=== PATIENT | female | born 1950 | race Caucasian/White ===

== ENCOUNTER 2017-06-28 07:41 | Emergency (ER) | payer BC, MEDICARE ==
[2017-06-28] MEDS ORDERED: traMADol TAB* 50 MG PO ONE (08:17)
[2017-06-28] MEDS ORDERED: NS 0.9% 1000 ML* 1,000 ML IV SCH (08:30)
[2017-06-28] MEDS ORDERED: Midazolam* 1 MG/ML 5 ML VIAL (5 MG) SLOW PUSH ONE (09:15)
[2017-06-28] MEDS ORDERED: fentaNYL* 50 MCG/ML 2 ML VIAL (100 MCG VIAL) IV SLOW PU ONE (09:15)
[2017-06-28 09:32] LABS: Hematocrit 43 % (35-47); Hemoglobin 14.3 g/dl (12.0-16.0); Mean Corpuscular HGB Conc 34 g/dl (31-36); Mean Corpuscular Hemoglobin 31 pg (27-31); Mean Corpuscular Volume 91 fL (80-97); Mean Platelet Volume 8 um3 (7.4-10.4); Red Blood Count 4.68 10^6/ul (4.0-5.4); Red Cell Distribution Width 14 % (10.5-15); White Blood Count 12.1 10^3/ul (3.5-10.8)
--- NOTE | 2017-06-28 09:38 | RAD ---
HISTORY: Left rib pain, fall COMPARISONS: None VIEWS: 11, Frontal and oblique views of the left and right hemithorax. FINDINGS: There is no displaced rib fracture or pneumothorax. The visualized lungs are clear. There is left shoulder dislocation. IMPRESSION: 1. NO DISPLACED RIB FRACTURE OR PNEUMOTHORAX. 2. LEFT SHOULDER DISLOCATION.
--- NOTE | 2017-06-28 09:39 | RAD ---
HISTORY: Fall, deformity, left shoulder pain COMPARISONS: None VIEWS: 3, Frontal internal rotation, external rotation, and outlet views of the left shoulder FINDINGS: BONE DENSITY: Normal. BONES: There is no displaced fracture. JOINTS: There is no arthropathy. ALIGNMENT: There is anterior dislocation of the humeral head with respect to the glenoid fossa. SOFT TISSUES: Unremarkable. OTHER FINDINGS: None. IMPRESSION: LEFT SHOULDER DISLOCATION.
[2017-06-28 09:48] LABS: BUN/Creatinine Ratio 18.5 (8-20); EGFR African American 117.6 (>60); EGFR Non-African American 91.5 (>60); Potassium 3.7 mmol/L (3.5-5.0)
--- NOTE | 2017-06-28 10:23 | ED ---
Progress - Progress Note Progress Note: Assisted Dr. Chang in conscious sedation of reduction of Lt shoulder anterior subluxation. 1st attempt: external rotation 2nd attempt: traction/counter traction Shoulder immobilizer placed - N/V intact Post reduction imaging successful per review of Lt shoulder image MILLY NIELSON 10:22 06/28/2017 Course/Dx - Diagnoses Provider Diagnoses: Dislocation of left shoulder joint
--- NOTE | 2017-06-28 10:30 | RAD ---
Indication: Postreduction left humeral head dislocation. Single view of left shoulder demonstrates reduction of previously identified anterior dislocation of the left humeral head. IMPRESSION: Reduction of previously seen anterior dislocation of left humeral head.
[2017-06-28 11:49] VITALS: BP 104/66
--- NOTE | 2017-06-28 19:01 | ED ---
Efrain Downs Angela, scribed for Ariel Chang MD on 06/28/17 at 0816 . Upper Extremity Pain - HPI Summary HPI Summary: This pt is a 67 y/o female accompanied by her presenting to [facility] c/o left shoulder pain s/p fall today. Pt reports she slipped on ice at her house today landing forward and falling on her left shoulder. Pt denies head strike, LOC, neck pain, head pain. Pt reports numbness on left dorsal forearm. She notes she has decreased ROM on her left shoulder secondary to pain. Her pain is mildly aggravated with deep breathing. She currently rates her pain 8/10 in severity. Pt takes zyrtec for allergies in the morning, two eye drops, and escitalopram for anxiety. She only had a sip of coffee this morning at around 0600 - 0630 and denies any other PO intake. She denies any past problems with anesthesia. Surgeries include varicose veins but without anesthesia. - History of Current Complaint Chief Complaint: EDExtremityUpper Stated Complaint: FALL/LT SHOULDER INJURY Hx Obtained From: Patient Mechanism Of Injury: Fall From A Standing Position Onset/Duration: Started Hours Ago, Traumatic, Still Present Timing: Constant, Lasting Hours Severity Currently: Severe - 8/10 pain Pain Location: Shoulder - left Aggravating Factor(s): Other - deep breathing Associated Signs & Symptoms: Positive: Numbness/Tingling - on left dorsal forearm. Negative: Neck Pain - Allergies/Home Medications Allergies/Adverse Reactions: Allergies Allergy/AdvReac Type Severity Reaction Status Date / Time Codeine AdvReac Unknown Unknown Verified 12/25/13 13:12 Reaction Details PMH/Surg Hx/FS Hx/Imm Hx Endocrine/Hematology History: Denies: Hx Diabetes, Hx Thyroid Disease Cardiovascular History: Reports: Hx Hypercholesterolemia Denies: Hx Hypertension Respiratory History: Reports: Hx Sleep Apnea - current CPAP user, Other Respiratory Problems/Disorders - allergic rhinitis Denies: Hx Asthma, Hx Chronic Obstructive Pulmonary Disease (COPD) GI History: Denies: Hx Ulcer Musculoskeletal History: Reports: Hx Arthritis - osteo Denies: Hx Rheumatoid Arthritis, Hx Osteoporosis Sensory History: Reports: Hx Contacts or Glasses Opthamlomology History: Reports: Hx Contacts or Glasses Psychiatric History: Reports: Hx Anxiety, Hx Depression - Cancer History Hx Chemotherapy: No Hx Radiation Therapy: No - Surgical History Surgery Procedure, Year, and Place: barthalon cyst removal Infectious Disease History: No Infectious Disease History: Denies: Hx Hepatitis, Hx Human Immunodeficiency Virus (HIV), History Other Infectious Disease, Traveled Outside the [place] in Last 30 Days - Family History Known Family History: Positive: Other - Aunt: breast CA. Negative: Diabetes - Social History Alcohol Use: Occasionally Substance Use Type: Reports: Sedatives Smoking Status (MU): Never Smoked Tobacco Review of Systems Negative: Fever, Chills Negative: Erythema Negative: Sore Throat Negative: Chest Pain Negative: Shortness Of Breath, Cough Negative: Abdominal Pain, Vomiting, Nausea Negative: dysuria, hematuria Musculoskeletal: Other - left shoulder pain Positive: Decreased ROM - at left shoulder secondary to pain. Negative: Myalgia , Edema - leg, Other - neck pain Negative: Rash Neurological: Negative - dizziness or LOC Positive: Numbness - in left dorsal forearm. Negative: Headache All Other Systems Reviewed And Are Negative: Yes Physical Exam - Summary Physical Exam Summary: Constitutional: Well-developed, Well-nourished, Alert, Cooperative Skin: Warm, Dry HENT: Normocephalic; No Racoons eyes; No battles sign; No abrasion; No contusion ; No hemotympanum; No maxilla facial tenderness or instability; Dentition are smooth; No dental trauma; No trismus Eyes: EOM normal, PERRL Neck: Trachea is midline. No stridor; No JVD; No step off; No posterior cervical spine tenderness Cardio: Rhythm regular, rate normal Heart sounds normal; Intact distal pulses; The pedal pulses are 2+ and symmetric. Radial pulses are 2+ and symmetric. Pulmonary/Chest wall: Effort normal; Breath sounds normal; Equal chest rise; No flail segment; No rib tenderness; No sternal tenderness Abd: Soft, Appearance normal. No distension; No tenderness; No palpable pulsatile mass; No Cullens sign; No Ebckett-Turners sign Musculoskeletal: Full ROM and no tenderness at hips, ankles, elbows and knees; No joint swelling; No vertebral body tenderness; No paraspinal tenderness; No step off or deformity of the spine; Pelvis is stable to lateral compression and rock. Left lateral rib tenderness. LUE: there is loss of the deltoid prominence. Neuro: Alert, Oriented x3, Strength 5/5 all extremities. Lead Applier strength is intact. Pt reports subjective diminished sensation on the dorsal forearm. : No blood at urethral meatus Psych: Mood and affect Normal Triage Information Reviewed: Yes Vital Signs On Initial Exam: Initial Vitals Temp Pulse Resp BP Pulse Ox 97.9 F 62 16 132/83 99 06/28/17 07:51 06/28/17 07:51 06/28/17 07:51 06/28/17 07:51 06/28/17 07:51 Vital Signs Reviewed: Yes - [place] Coma Scale Coma Scale Total: 15 Procedures - Procedure Summary Procedure Summary: Procedural Sedation Note: Informed consent was obtained. I explained the risk of apnea, hypotension, allergic reaction with the pt and family. They understood. Pre-sedation assessment: she is Mallampati Class 2, ASA Class 2. As sedation was starting she actually reported a history of sleep apnea. Respiratory therapy was present, as well as emergency airway equipment. Suction and BMV were readily available. Capnography monitor was utilized, as well as pulse oximetry. The pt had shoulder joint reduction performed by DESHAWN Moore. After reduction, the pt did require some airway repositioning and painful stimulus sternal rub to stimulate breathing for approximately 5 to 7 minutes. No signs of hypotension, significant hypoxia, and no indication for reversal agents. I did adolescent counselor the on the pts sensitivity to anesthetics and sedatives for future sedation. As I left the room the pt was able to answer questions and was more alert. Medications used: 50 mcg of fentanyl and 3 mg versed. Diagnostics - Vital Signs Vital Signs Temp Pulse Resp BP Pulse Ox 06/28/17 07:51 97.9 F 62 16 132/83 99 - Laboratory Result Diagrams: 06/28/17 09:26 06/28/17 09:26 Lab Statement: Any lab studies that have been ordered have been reviewed, and results considered in the medical decision making process. - Radiology Left Shoulder XR Xray Interpretation: Positive (See Comments) - IMPRESSION: Left shoulder dislocation. ED physician has reviewed this radiology report and agrees. Radiology Interpretation Completed By: ED Physician - read: anterior dislocation of the shoulder. No fractures appreciated., Radiologist Ribs with Chest XR Xray Interpretation: Positive (See Comments) - IMPRESSION: 1. No displaced rib fracture or pneumothorax. 2. Left shoulder dislocation. ED physician has reviewed this radiology report and agrees. Radiology Interpretation Completed By: Radiologist Postreduction left shoulder XR Xray Interpretation: Positive (See Comments) - IMPRESSION: Reduction of previously seen anterior dislocation of left humeral head. ED physician has reviewed this radiology report and agrees. Radiology Interpretation Completed By: Radiologist Re-Evaluation - Re-Evaluation First Eval Re-Evaluation Time: 10:05 Comment: Procedural sedation was completed. Second Eval Re-Evaluation Time: 11:05 Comment: Pt is more conversational. She will eat before getting discharged. Third Eval Re-Evaluation Time: 11:29 Comment: There is resolution of the numbness of her hand. Lead Applier and strength are intact. Distal pulses are intact. Pt tolerated breakfast. Course/Dx - Course Assessment/Plan: This pt is a 67 y/o female accompanied by her presenting to [facility] c/o left shoulder pain s/p fall today. Pt reports she slipped on ice at her house today landing forward and falling on her left shoulder. Pt denies neck or head pain. No LOC. Pt reports numbness on left dorsal forearm. She notes she has decreased ROM on her left shoulder secondary to pain. Her pain is mildly aggravated with deep breathing. She currently rates her pain 8/10 in severity. Pt takes zyrtec for allergies in the morning, two eye drops, and escitalopram for anxiety. She only had a sip of coffee this morning at around 0600 - 0630 and denies any other PO intake. She denies any past problems with anesthesia. Surgeries include varicose veins but without anesthesia. XR of left shoulder and ribs with chest were obtained. Imaging shows 1. No displaced rib fracture or pneumothorax. 2. Left shoulder dislocation. In the ED course, the pt was given IV fluids and tramadol. Procedural sedation was performed. Please see procedural sedation note. DESHAWN Moore performed the shoulder joint reduction. Postreduction left shoulder XR shows reduction of previously seen anterior dislocation of left humeral head. On re-evaluatino at 11:29, there was resolution of the numbness of her hand. Lead Applier and strength are intact. Distal pulses are intact. Pt tolerated breakfast. Pt will be discharged with follow up from Dr. Chi, orthopedist wire preparation worker, and her PCP, Dr. Hay. Pt was given a sling to wear as well as discharge instructions. - Diagnoses Provider Diagnoses: Anterior dislocation of left shoulder Discharge - Discharge Plan Condition: Stable Disposition: HOME Patient Education Materials: Shoulder Dislocation (ED), Procedural Sedation (ED ) Referrals: Kamryn Chi MD [Medical Doctor] - Lucho Hay MD [Medical Doctor] - Additional Instructions: Please follow up with Dr. Chi, from orthopedics, in 3-5 days. Also, follow up with your primary care provider, Dr. Hay. Wear your sling during the day. You may take it off at night. Avoid reaching over your head. RETURN TO THE EMERGENCY DEPARTMENT FOR CHANGING OR WORSENING SYMPTOMS. The documentation as recorded by the Efrain day Angela accurately reflects the service I personally performed and the decisions made by me, Ariel Chang MD.
== END 2017-06-28 11:46 | disposition home or self-care (01) ==
LOC: ED 07:41
DX: S43.005A Unspecified dislocation of left shoulder joint, initial encounter (principal); E78.00 Pure hypercholesterolemia, unspecified; G47.30 Sleep apnea, unspecified; M19.90 Unspecified osteoarthritis, unspecified site; M81.0 Age-related osteoporosis without current pathological fracture; Z88.5 Allergy status to narcotic agent; W00.0XXA Fall on same level due to ice and snow, initial encounter; Y92.009 Unspecified place in unspecified non-institutional (private) residence as the place of occurrence of the external cause; F41.9 Anxiety disorder, unspecified
CPT/HCPCS: 23650; 36415; 71111; 80048; 85027; 85610; 85730; 96360; 96374; 96375; 99283; A9270-GY; J2250; J3010

== ENCOUNTER 2017-11-10 17:39 | Emergency (ER) | payer MEDICARE ==
[2017-11-10 17:49] VITALS: BP 126/73
--- NOTE | 2017-11-10 18:36 | UC ---
Respiratory Complaint HPI - HPI Summary HPI Summary: Patient presents with 3 days of worsening sore throat, pain with swallowing and productive cough. Also has rhinitis and sinus pressure. This morning patient woke up with RIGHT eye crusted shut and has had green, goopy drainage throughout the day. Patient denies fever, ear pain, nausea/vomiting. - History of Current Complaint Chief Complaint: UCRespiratory Stated Complaint: EYE PAIN/ SORE THROAT Time Seen by Provider: 11/10/17 18:03 Hx Obtained From: Patient Onset/Duration: Gradual Onset, Lasting Days, Still Present Timing: Constant Severity Initially: Moderate Severity Currently: Moderate Pain Intensity: 2 Pain Scale Used: 0-10 Numeric Character: Cough: Productive Aggravating Factors: Nothing Alleviating Factors: Nothing Associated Signs And Symptoms: Positive: URI, Nasal Congestion, Sinus Discomfort. Negative: Dyspnea, Fever, Wheezing - Allergies/Home Medications Allergies/Adverse Reactions: Allergies Allergy/AdvReac Type Severity Reaction Status Date / Time codeine Allergy Unknown Verified 11/10/17 17:50 Reaction Details Home Medications: Home Medications Escitalopram Oxalate [Lexapro 10 mg] 1 tab PO DAILY 11/10/17 [History Confirmed 11/10/17] PMH/Surg Hx/FS Hx/Imm Hx Psychological History: Anxiety - Surgical History Surgical History: Yes Surgery Procedure, Year, and Place: Barthalon cyst removal - Family History Known Family History: Positive: Hypertension, Other - Aunt: breast CA. Negative: Diabetes - Social History Alcohol Use: Occasionally Substance Use Type: Sedatives Smoking Status (MU): Never Smoked Tobacco Review of Systems Constitutional: Negative ENT: Sore Throat, Nasal Discharge Respiratory: Cough Cardiovascular: Negative Gastrointestinal: Negative Neurological: Headache All Other Systems Reviewed And Are Negative: Yes Physical Exam Triage Information Reviewed: Yes Appearance: No Pain Distress, Well-Nourished, Ill-Appearing - MILD Vital Signs: Initial Vital Signs Temp 98.2 F 11/10/17 17:46 Pulse 84 11/10/17 17:46 Resp 18 11/10/17 17:46 BP 126/73 11/10/17 17:46 Pulse Ox 98 11/10/17 17:46 Eyes: Positive: Conjunctiva Inflamed - RIGHT, Discharge - THICK, GREEN RIGHT EYE DISCHARGE. PERRL, EOMI ENT: Positive: Hearing grossly normal, Pharynx normal, TMs normal Neck: Positive: Supple, Nontender, Enlarged Nodes @ - MILD SPFL CERVICAL RIGHT SIDED LAD Respiratory Exam: Normal Cardiovascular Exam: Normal Abdomen Description: Positive: Soft Musculoskeletal: Positive: No Edema Neurological: Positive: Alert Psychological: Positive: Age Appropriate Behavior Skin: Negative: rashes UC Diagnostic Evaluation - Laboratory O2 Sat by Pulse Oximetry: 98 Respiratory Course/Dx - Differential Dx/Diagnosis Provider Diagnoses: 1. ACUTE URI. 2. RIGHT CONJUNCTIVITIS Discharge - Sign-Out/Discharge Documenting (check all that apply): Discharge - Discharge Plan Condition: Stable Disposition: HOME Prescriptions: Azithromycin 500 mg PO DAILY #4 tab Patient Education Materials: Upper Respiratory Infection (ED), Conjunctivitis ( ED) Forms: *Work Release Referrals: Lucho Hay MD [Primary Care Provider] - If Needed Additional Instructions: YOUR SYMPTOMS MAY BE VIRALLY MEDIATED BUT GIVEN YOUR CLINICAL PRESENTATION WE WILL COVER YOU WITH ANTIBIOTICS. IF YOU START THE MEDICINE BE SURE TO TAKE IT FOR THE FULL COURSE. REST, HYDRATE, OTC MEDS NEEDED. SEEK FOLLOW-UP WITH YOUR PCP IF YOU ARE NOT IMPROVING OVER THE NEXT 1-2 WEEKS. Use the Cipro eye drops every 4 hours while awake. Use until your symptoms have resolved and then use for an extra 2 days. Follow-up with an eye doctor if your symptoms are not improving as expected. - Billing Disposition and Condition Condition: STABLE Disposition: HOME
[2017-11-10] MEDS ORDERED: Azithromycin TAB* 250 MG PO ONE (18:37)
[2017-11-10] MEDS ORDERED: Ciprofloxacin 0.3% OPTH.SOL* 2.5 ML BTL RIGHT EYE ONE (18:37)
--- NOTE | 2017-11-11 14:29 | UC ---
- Progress Note Progress Note: Pharmacist concerned with interaction of zithromax and Lexapro. Changed to Amoxicillin, 875 bid, for 45 days; total 10. Sami Reed MD November 11, 2017 Discharge - Sign-Out/Discharge Documenting (check all that apply): Post-Discharge Follow Up - Discharge Plan Condition: Stable Disposition: HOME Prescriptions: Azithromycin 500 mg PO DAILY #4 tab Patient Education Materials: Upper Respiratory Infection (ED), Conjunctivitis ( ED) Forms: *Work Release Referrals: Lucho Hay MD [Primary Care Provider] - If Needed Additional Instructions: YOUR SYMPTOMS MAY BE VIRALLY MEDIATED BUT GIVEN YOUR CLINICAL PRESENTATION WE WILL COVER YOU WITH ANTIBIOTICS. IF YOU START THE MEDICINE BE SURE TO TAKE IT FOR THE FULL COURSE. REST, HYDRATE, OTC MEDS NEEDED. SEEK FOLLOW-UP WITH YOUR PCP IF YOU ARE NOT IMPROVING OVER THE NEXT 1-2 WEEKS. Use the Cipro eye drops every 4 hours while awake. Use until your symptoms have resolved and then use for an extra 2 days. Follow-up with an eye doctor if your symptoms are not improving as expected. - Billing Disposition and Condition Condition: STABLE Disposition: HOME
== END 2017-11-10 18:51 | disposition home or self-care (01) ==
LOC: UCEAST 17:39
DX: J06.9 Acute upper respiratory infection, unspecified (principal); H10.31 Unspecified acute conjunctivitis, right eye; F41.9 Anxiety disorder, unspecified; Z88.5 Allergy status to narcotic agent
CPT/HCPCS: 99213; A9270-GY; G0463